=== PATIENT | female | born 1995 | race Native Hawaiian/Other Pacific Islander ===

== ENCOUNTER 2023-06-12 00:36 | Emergency (ER) | payer MEDICAID ==
[~2023-06-12] VITALS: Ht 172.7 cm; Wt 193.2 kg
[2023-06-12 01:52] VITALS: BP 126/64; PULSE 108; RESP 18; TEMP 96.9; O2SAT 97
[2023-06-12] MEDS ORDERED: diphenhydrAMINE 25mg capsule PO ONE (04:00)
[2023-06-12] MEDS ORDERED: CefTRIAXone 1000mg IM Kit (w/lidocaine diluent) IM ONE (04:00)
[2023-06-12] MEDS ORDERED: metoclopramide 10mg tablet PO ONE (04:00)
[2023-06-12] MEDS ORDERED: CEPH-585 PO (04:40)
[2023-06-12] MEDS ORDERED: DIPH25CA83 PO (04:40)
[2023-06-12] MEDS ORDERED: ondansetron 4mg rapidly disintigrating tab PO ONE (04:40)
[2023-06-12] MEDS ORDERED: METO5TAB85 PO (04:40)
== END 2023-06-12 05:16 | disposition home or self-care (01) ==
LOC: ER 00:38
DX: L02.214 Cutaneous abscess of groin (principal); G43.909 Migraine, unspecified, not intractable, without status migrainosus; Z88.1 Allergy status to other antibiotic agents; Z79.2 Long term (current) use of antibiotics; Z79.899 Other long term (current) drug therapy
CPT/HCPCS: 10060; 87070; 96372; 99284; A6266; J0696; Q0163; 87077; 87186; A6449